=== PATIENT | female | born 1980 | race African-American/Black ===

== ENCOUNTER 2016-07-18 03:26 | Inpatient (IN) | payer MEDICAID ==
[~2016-07-18] VITALS: Ht 167.6 cm; Wt 100.1 kg
[2016-07-18 03:56] VITALS: BP 136/79; PULSE 67; RESP 18
[2016-07-18] MEDS ORDERED: PRENAT PO (03:58)
[2016-07-18] MEDS ORDERED: FERR134T PO (03:58)
--- NOTE | 2016-07-18 07:19 | RADRPT ---
PROCEDURE: Obstetrical ultrasound, limited. CLINICAL INDICATION: Pelvic pain. TECHNIQUE: Multiple sonographic images of the pelvis were obtained using transabdominal technique . Images were obtained with peterson scale and color Doppler. The images were reviewed on a PACS works tation. COMPARISON: No prior studies are available for comparison. FINDINGS: There is a single living intrauterine gestation with the fetus in a vertex presentation. hear t tones of 118 beats per minute are identified. The placenta is posterior and fundal in location, g rade 2. There is low normal amniotic fluid volume with an CELESTE of 6.1 cm. There is no evidence of p lacenta previa or abruption. Measurements were made in order to determine age. The results are as follows: BPD =9.44 cm HC =33.19 cm AC =34.29 cm FL =7.32 cm. Estimated gestational age of approximately 38 weeks and 0 days. The estimated date of delivery is 08/01/2016. The EFW = 3373 +/- 506 grams. Estimated weight percentage equals 37.5%. IMPRESSION: Single viable intrauterine gestation of approximately 38 weeks and 0 days, with an ultrasound ILIR of 08/01/2016. Low normal CELESTE of 6.1 cm. .Arnie Nieves MD, MD Date Time Electronically viewed and signed by .Arnie Nieves MD, MD on 07/18/2016 07:19 .T/
[2016-07-18] MEDS ORDERED: LIDOCAINE 1% (MPF) 30 ML INJ INJ PRN (07:30)
[2016-07-18] MEDS ORDERED: CARBOPROST 250 MCG INJ IM PRN ×2 (07:30→23:30)
[2016-07-18] MEDS ORDERED: OXYTOCIN 30 UNITS/LR 500 ML IV PRN ×2 (07:30→23:30)
[2016-07-18] MEDS ORDERED: OXYTOCIN 30 UNITS/LR 500 ML IV SCH ×4 (07:30→23:21)
[2016-07-18] MEDS ORDERED: METHYLERGONOVINE 0.2 MG INJ IM PRN ×2 (07:30→23:30)
[2016-07-18] MEDS ORDERED: MISOPROSTOL 200 MCG TAB PR PRN ×2 (07:30→23:30)
[2016-07-18] MEDS ORDERED: AMPICILLIN 2 GM/NS (PMX) 100 ML IV ONE (07:30)
[2016-07-18] MEDS ORDERED: IBUPROFEN 600 MG TAB PO PRN (07:30)
[2016-07-18] MEDS ORDERED: BUTORPHANOL 2 MG INJ IV PRN (07:30)
[2016-07-18] MEDS ORDERED: LACTATED RINGER'S 1,000 ML IV PRN (07:30)
--- NOTE | 2016-07-18 07:51 | TRIAGE ---
OB Triage Datetime Report Generated by CPN: 07/18/2016 07:50 Datetime: 07/18/2016 07:14 Maternal Assessment Level of Consciousness: Fully Conscious DTR's/Clonus: DTRs 2+ Headache: Denies Blurred Vision: No Nausea/Vomiting: Denies RUQ Epigastric Pain: Denies Facial Edema: None Labor Evaluation Frequency: IREG Monitor Mode: External Quality: Moderate Pattern: Normal: <= 5 Contractions in 10 Minutes Resting Tone [place]: Relaxed Heart Rate FHR Baseline Rate: 130 Monitor Mode: External US FHR Baseline Changes: No Baseline Change Variability: Minimal - Undetectable to <=5 bpm Decelerations: None Category: Category I Pain Assessment Pain Scale: 6 Pain Presence: Intermittent Pain Type: Contraction Pain Location: Abdomen Pain Goal: 4 Membrane Status: Intact Datetime: 07/18/2016 06:00 Stage of : OB Triage Labor Evaluation Frequency: Irregular Monitor Mode: External Duration (sec)2399: 40-90 Quality: Mild Pattern: Normal: <= 5 Contractions in 10 Minutes Resting Tone [place]: Relaxed Heart Rate FHR Baseline Rate: 125 Monitor Mode: External US FHR Baseline Changes: No Baseline Change Variability: Minimal - Undetectable to <=5 bpm Accelerations: 15X15 Decelerations: None Category: Category II Datetime: 07/18/2016 05:26 Stage of : OB Triage Monitor Mode: External Quality: Moderate Pattern: Normal: <= 5 Contractions in 10 Minutes Resting Tone [place]: Relaxed Heart Rate FHR Baseline Rate: 130 Monitor Mode: External US FHR Baseline Changes: No Baseline Change Variability: Moderate 6-25 bpm Accelerations: 15X15 Decelerations: None Category: Category I Datetime: 07/18/2016 05:00 Stage of : OB Triage Labor Evaluation Frequency: 5-7.5 Monitor Mode: External Duration (sec)2399: 70-90 Quality: Mild Pattern: Normal: <= 5 Contractions in 10 Minutes Resting Tone [place]: Relaxed Heart Rate FHR Baseline Rate: 125 Monitor Mode: External US Variability: Moderate 6-25 bpm Accelerations: 15X15 Decelerations: None Category: Category I Datetime: 07/18/2016 04:30 Stage of : OB Triage Datetime: 07/18/2016 04:13 Vaginal Exam Dilatation (cms): 0.5 Effacement (%): 90 Station: -2 Exam By: ANA Burks Vaginal Bleeding: Small Datetime: 07/18/2016 04:05 Stage of : OB Triage Assessment Type: Triage Maternal Assessment Level of Consciousness: Fully Conscious DTR's/Clonus: DTRs 2+; No Clonus Headache: Denies Blurred Vision: No Respiratory Effort: Unlabored; Regular Rhythm; Equal Expansion Breath Sounds, Left: Clear and Equal Breath Sounds, Right: Clear and Equal Nausea/Vomiting: Denies RUQ Epigastric Pain: Denies Lower Extremities Edema: None Degree: None Upper Extremities Edema: None Degree: None Facial Edema: None Fall Risk Assessment History of Falling: (0) No Secondary Diagnosis: (0) No Ambulatory Aid: (0) Bedrest/Nurse Assist IV Therapy: (0) No Gait: (0) Normal/Bedrest/Immobile Mental Status: (0) Oriented to Own Ability Datetime: 07/18/2016 04:00 Stage of : OB Triage Labor Evaluation Frequency: 5-7.5 Monitor Mode: External Duration (sec)2399: 70-90 Quality: Mild Pattern: Normal: <= 5 Contractions in 10 Minutes Resting Tone [place]: Relaxed Heart Rate FHR Baseline Rate: 130 Monitor Mode: External US Variability: Moderate 6-25 bpm Accelerations: 15X15 Decelerations: None Category: Category I Datetime: 07/18/2016 03:52 Time of Arrival: 07/18/2016 03:21 EGA: 39.3 Arrived By: Ambulatory Arrived From: Home Chief Complaint: w/ c/o ucs and spotting. States was 2cm yesterday and BP elevated x1 Movement: Present Contractions: Regular Time Contractions Began: 07/18/2016 00:00 Contractions: Q10 Rupture of Membranes: Denies Vaginal Bleeding: Small Vaginal Discharge: Denies Recent Sexual Intercouse: Denies Abdominal Trauma: Not Applicable Patient Complaints: Contractions Time Provider Notified: 07/18/2016 04:30 Provider Notified: Initial Plan: EFM, SVE Datetime: 07/18/2016 03:34 Monitor Mode: External Contraction Comments: [place] applied Heart Rate FHR Baseline Rate: 125 Monitor Mode: External US Comments: EFM applied
[2016-07-18 08:05] VITALS: BP 139/64; PULSE 82; RESP 20
[2016-07-18] MEDS: LACTATED RINGER'S 1,000 ML IV SCH ×2 (08:30→15:15)
[2016-07-18 09:35] LABS: ADD SCAN DIFF NO
[2016-07-18 09:38] LABS: BASOPHILS % 0.2 % (0.0-2.0); EOSINOPHILS % 0.2 % (0.0-7.0); HEMATOCRIT 36.2 % (37.0-47.0); HEMOGLOBIN 11.8 g/dl (12.0-16.0); LYMPHOCYTES # 1.2 10^3/ul (0.8-2.9); LYMPHOCYTES % 9.1 % (15.0-51.0); MEAN CORPUSCULAR HEMOGLOBIN 30.6 pg (29.0-33.0); MEAN CORPUSCULAR HGB CONC 32.6 g/dl (32.0-37.0); MEAN PLATELET VOLUME 12.8 fl (7.4-10.4); MONOCYTE # 0.8 10^3/ul (0.3-0.9); MONOCYTES % 6.3 % (0.0-11.0); NEUTROPHIL # 10.8 10^3/ul (1.6-7.5); NEUTROPHILS % 82.1 % (39.0-77.0); PLATELET COUNT 146 10^3/UL (140-415); RED BLOOD COUNT 3.85 10^6/ul (4.20-5.40); RED CELL DISTRIBUTION WIDTH 14.5 % (11.5-14.5); WHITE BLOOD COUNT 13.1 10^3/ul (4.8-10.8)
[2016-07-18 10:01] LABS: INR 0.91; PROTIME 12.3 Sec (12.2-14.2)
[2016-07-18 10:02] LABS: PARTIAL THROMBOPLASTIN TIME 27.1 Sec (25.0-35.0)
[2016-07-18] MEDS ORDERED: AMPICILLIN 1 GM/NS (PMX) 50 ML IV SCH ×2 (11:30→12:00)
[2016-07-18] MEDS: AMPICILLIN 1 GM/NS (PMX) 50 ML IV SCH ×3 (12:27→20:30)
[2016-07-18 15:56] LABS: ALBUMIN 3.8 g/dl (3.3-4.9); ALBUMIN/GLOBULIN RATIO 1.8; BILIRUBIN,INDIRECT 0.1 mg/dl (0-1.1); BILIRUBIN,TOTAL 0.1 mg/dl (0.2-1.3); CALCIUM 9.2 mg/dl (8.4-10.2); CREATININE 0.65 mg/dl (0.44-1.00); POTASSIUM 4.2 mmol/L (3.5-5.1); TOTAL PROTEIN 5.9 g/dl (6.1-8.1); URIC ACID 3.9 mg/dl (3.1-7.9)
[2016-07-18 16:23] LABS: ADD UMIC YES; URINE BILIRUBIN (Dip) NEGATIVE (NEGATIVE); URINE BLOOD (Dip) 3+ (NEGATIVE); URINE COLOR LT. YELLOW (YELLOW); URINE GLUCOSE (Dip) NEGATIVE (NEGATIVE); URINE KETONES (Dip) 15 (NEGATIVE); URINE LEUKOCYTE ESTERASE (Dip) 1+ (NEGATIVE); URINE NITRITE (Dip) NEGATIVE (NEGATIVE); URINE TOTAL PROTEIN (Dip) 1+ (NEGATIVE); URINE UROBILINOGEN (Dip) 0.2 E.U./dL (0.1-1.0)
[2016-07-18] MEDS ORDERED: MAGNESIUM SULFATE 20 GM/500 ML 500 ML IV SCH (17:30)
[2016-07-18] MEDS ORDERED: MAGNESIUM SULFATE 4 GM/100 ML 100 ML IVPB ONE (17:30)
--- NOTE | 2016-07-18 21:05 | HP ---
Date/Time of Note Date/Time of Note DATE: 07/18/16 TIME: 21:03 OB - History Hx of Present Free Text/Dictation term preg. in active labor with elevated bp Care: Good Care Ultrasounds: Normal mid trimester US Obstetrical Complications: None Medical Complications: None Past Family/Social History * Past Medical, Surgical, Family and Obstetric Histories reviewed from chart. OB Admission Exam Vital Signs Vital Signs Vital Signs Date Time Temp Pulse Resp B/P Pulse Ox O2 Delivery O2 Flow Rate FiO2 07/18/16 08:05 98.3 82 20 139/64 Room Air Physical Exam HEENT: WNL Heart: Rhythm Normal Lungs: Clear, Equal Abdomen: WNL Extremities: Normal Reflexes: Normal Cervical Dilatation: 10cm Effacement: 100% Station: +3 Membranes: Ruptured Amniotic Fluid: Clear Accelerations: Accelerations Present Last 72 hours Lab Results CBC & BMP 07/18/16 08:22 07/18/16 11:18 Liver Function Test 07/18/16 11:18 Alanine Aminotransferase (ALT/SGPT) 45 Albumin 3.8 Alkaline Phosphatase 185 H Aspartate Amino Transf (AST/SGOT) 55 H Direct Bilirubin 0.00 Total Protein 5.9 L OB Assessment/Plan Plan: Expectant Management HERRERA MARTE MD Jul 18, 2016 21:05
--- NOTE | 2016-07-18 21:06 | LDN ---
Date/Time of Note Date/Time of Note DATE: 07/18/16 TIME: 21:05 Delivery Summary term preg. vaginal delivery Placenta Delivered: Spontaneously Meconium: none Episiotomy: No Indication for episiotomy 2nd Anesthesia type: None Estimated blood loss: 350 Sponge & Needle done & correct: Yes All needle counts correct: Yes Any foreign bodies felt in the: No Problems: HERRERA MARTE MD Jul 18, 2016 21:06
[2016-07-18 22:45] VITALS: BP 124/69; PULSE 73; RESP 20
[2016-07-18] MEDS ORDERED: LACTATED RINGER'S 1,000 ML IV* SCH (23:21)
[2016-07-18] MEDS ORDERED: LANOLIN 7 GM TUBE TOP PRN (23:30)
[2016-07-18] MEDS ORDERED: ACETAMINOPHEN/CODEINE #3 TAB PO PRN (23:30)
[2016-07-18] MEDS ORDERED: WITCH HAZEL/GLYCERIN PAD PR PRN (23:30)
[2016-07-18] MEDS ORDERED: BENZOCAINE 20% 56 ML SPRAY TOP PRN (23:30)
[2016-07-18] MEDS ORDERED: DIPHENHYDRAMINE 25 MG CAP PO PRN (23:30)
[2016-07-18] MEDS ORDERED: ZOLPIDEM 5 MG TAB PO PRN (23:30)
[2016-07-18] MEDS ORDERED: ACETAMINOPHEN 325 MG TAB PO PRN (23:30)
[2016-07-18] MEDS ORDERED: SENNA/DOCUSATE NA (8.6MG/50MG) TAB PO PRN (23:30)
[2016-07-18] MEDS ORDERED: MAGNESIUM HYDROXIDE 30ML CUP PO PRN (23:30)
[2016-07-19] VITALS (18 sets, daily range): BP systolic 93–133; BP diastolic 60–78; PULSE 60–90; RESP 17–20
[2016-07-19] MEDS: MAGNESIUM SULFATE 20 GM/500 ML 500 ML IV SCH ×2 (04:41→14:22)
[2016-07-19] MEDS: IBUPROFEN 800 MG TAB PO SCH ×5 (05:32→23:55)
[2016-07-19 08:09] LABS: ADD SCAN DIFF NO
[2016-07-19 08:14] LABS: ABNORMAL IP MESSAGE 1; BASOPHILS % 0.1 % (0.0-2.0); EOSINOPHILS % 0.1 % (0.0-7.0); HEMATOCRIT 28.9 % (37.0-47.0); HEMOGLOBIN 9.7 g/dl (12.0-16.0); LYMPHOCYTES % 9.3 % (15.0-51.0); MEAN CORPUSCULAR HEMOGLOBIN 31.4 pg (29.0-33.0); MEAN CORPUSCULAR HGB CONC 33.6 g/dl (32.0-37.0); MEAN CORPUSCULAR VOLUME 93.5 fl (82.0-101.0); MEAN PLATELET VOLUME 12.6 fl (7.4-10.4); MONOCYTE # 1.7 10^3/ul (0.3-0.9); MONOCYTES % 7.9 % (0.0-11.0); NEUTROPHIL # 17.4 10^3/ul (1.6-7.5); NEUTROPHILS % 80.8 % (39.0-77.0); PLATELET COUNT 135 10^3/UL (140-415); RED BLOOD COUNT 3.09 10^6/ul (4.20-5.40); RED CELL DISTRIBUTION WIDTH 14.6 % (11.5-14.5); WHITE BLOOD COUNT 21.6 10^3/ul (4.8-10.8)
--- NOTE | 2016-07-19 11:29 | QN ---
Documentation Comment PPD#1 is stable afebrile +voids No VB +BM No [place] No blurry vision No epigastric pain VS stable Gen NAD Abd soft NT ND Genitalia No blood at perinium --->discharge plan tomorrow --->stop Mg 24 hr after the delivery DIVINA JAMES M.D. Jul 19, 2016 11:29
[2016-07-20 00:33] VITALS: BP 116/71; PULSE 60; RESP 18
[2016-07-20 04:00] VITALS: BP 109/58; PULSE 69; RESP 20
[2016-07-20] MEDS: IBUPROFEN 800 MG TAB PO SCH ×2 (05:34→11:55)
[2016-07-20 08:10] VITALS: BP 114/58; PULSE 69; RESP 18
[2016-07-20] MEDS ORDERED: DIPHTH/TET/ACEL PERTUSS (ADULT) 0.5 ML VIAL IM* ONE (09:00)
[2016-07-20] MEDS ORDERED: MEASLES,MUMPS,RUBELLA VACCINE INJ SC* ONE (09:00)
[2016-07-20] MEDS ORDERED: VARICELLA VACCINE LIVE/PF 1,350 UNIT/0.5 ML ML SC* ONE (09:00)
--- NOTE | 2016-07-20 14:49 | DS ---
Date/Time of Note Date/Time of Note DATE: 07/20/16 TIME: 14:49 Obstetrical Discharge Record Final Diagnosis Final Diagnosis: Term delivered Vaginal Delivery Obstetrical Delivery: Spontaneous Condition on Discharge Physical Assessment Voiding: Yes Bowel Movement: Yes Breast: Soft, non-tender Fundus: Firm Calf Tenderness: No Patient Condition: Stable MANNY JOHNSON MD Jul 20, 2016 14:49
[2016-07-20 15:50] VITALS: BP 120/80; PULSE 69; RESP 19
== END 2016-07-20 17:35 | disposition home or self-care (01) | DRG 775 ==
LOC: EEVIPCON 03:26 → OBT 03:26 → L-D 03:27 → OBT 07:30 → PP1 22:35
PROVIDERS: ADMIT Obstetrics & Gynecology; ATTEND Obstetrics & Gynecology
PROC: 10E0XZZ Delivery of Products of Conception, External Approach (ICD-10-PCS; principal; 2016-07-18)
PROC: 0W8NXZZ Division of Female Perineum, External Approach (ICD-10-PCS; 2016-07-18)
PROC: 3E00X4Z Introduction of Serum, Toxoid and Vaccine into Skin and Mucous Membranes, External Approach (ICD-10-PCS; 2016-07-20)
DX: O80 Encounter for full-term uncomplicated delivery (principal); Z23 Encounter for immunization; Z3A.39 39 weeks gestation of pregnancy; Z37.0 Single live birth
CPT/HCPCS: 76815; 80053; 81001; 83735; 84560; 85025; 85610; 85730; 86592; 86900; 86901; 87340; 90715; 90716; G0463; J0290; J2590; J3475; J7120